=== PATIENT | male | born 1955 | race Caucasian/White ===

== ENCOUNTER → 2017-03-29 | Outpatient (CLI) | payer MEDICARE, BC ==
--- NOTE | 2017-03-29 08:20 | MR ---
EXAMINATION TYPE: MR brain wo con, MR angio head wo con DATE OF EXAM: 03/29/2017 COMPARISON: NONE HISTORY: Family history of stroke TECHNIQUE: Multiplanar, multisequence images of the brain and brainstem is performed without IV contrast. Time of flight images focusing on the [place] of [place] were performed without contrast.. 2-D and 3-D post processing imaging is performed. FINDINGS: Diffusion weighted images demonstrate no evidence of a recent infarct or other diffusion ab normality. There is no extra-axial fluid collection. Numerous T2/FLAIR hyperintense foci are scatter ed throughout the subcortical and periventricular white matter measuring up to 5 mm within both the r ight and left frontal lobes on T2 FLAIR and axial fat sat sequence image 18 and 19 on the right and l eft respectively. These do not have a typical pericallosal distribution of demyelinating disease. No infratentorial white matter changes are seen. No suspicious surrounding vasogenic edema is noted. The ventricular system and cisternal spaces are normal in size and appearance. The brain volume is age appropriate. Midline structures demonstrate normal morphology. The craniocervical junction appears within normal limits. The globes are intact. Mild mucosal thickening is seen within the ethmoid sinuses and right m axillary sinus. Remaining paranasal sinuses and mastoid air cells are well aerated. Midline structure s and bone marrow signal are unremarkable. Extraocular muscles are symmetric. There is no evidence of vascular dissection in the visualized intracranial vascular structures. There is no evidence of hemodynamically significant stenosis. There is a saccular aneurysm at the junction of the posterior communicating artery and right M1 segment measuring 3.3 mm. No other intracranial a neurysms are identified. No vascular malformations. The [place] of [place] is intact. The vertebral art eries are codominant. IMPRESSION: 1. 3.3 mm intracranial aneurysm at the junction of the M1 segment of the middle cerebral artery and p osterior communicating artery. 2. No evidence of hemodynamically significant stenosis or vascular dissection. 3. Moderate burden nonspecific white matter change, slightly pronounced for the patient's age, this i s not in the typical distribution of demyelinating disease and primary diagnostic consideration is fo r sequela of microangiopathy. Correlate with history of vascular disease or hypertension. 4. Mild paranasal sinus disease. 5. No evidence of acute infarct.
== END | disposition home or self-care (01) ==
LOC: RADMRIMAIN 06:58
PROVIDERS: ATTEND Family Medicine
DX: I67.1 Cerebral aneurysm, nonruptured (principal); R90.82 White matter disease, unspecified; I10 Essential (primary) hypertension; Z82.3 Family history of stroke
CPT/HCPCS: 70544; 70551

== ENCOUNTER → 2020-07-05 | Outpatient (CLI) | payer MEDICARE ==
--- NOTE | 2020-07-05 22:14 | MR ---
EXAMINATION TYPE: MR knee RT wo con DATE OF EXAM: 07/05/2020 COMPARISON: Not available. HISTORY: Right knee pain x 1 month TECHNIQUE: Multiplanar, multisequence imaging of the right knee is performed without IV contrast. FINDINGS: MEDIAL MENISCUS: Horizontal oblique tear of the posterior horn and body junction. LATERAL MENISCUS: Anterior and posterior horns are intact without tear. CRUCIATE LIGAMENTS: Mild heterogeneity and irregularity of the anterior cruciate ligament without ful l-thickness tear. Posterior cruciate ligament is intact and unremarkable. COLLATERAL LIGAMENTS: Mild thickening of the medial collateral ligament with surrounding edema compat ible with prior sprain. Lateral collateral ligament complex are intact and unremarkable. EXTENSOR MECHANISM: Visualized quadriceps and patellar tendons are intact. EFFUSION: [id number]-[id number] knee joint effusion. POPLITEAL CYST: Small popliteal/orta cyst. TRICOMPARTMENT SPACES/CARTILAGE: Mild thinning of the medial and patellofemoral compartment articular cartilage without significant chondral defects. Lateral compartment is grossly intact BONE MARROW SIGNAL: No focal abnormal marrow signal is appreciated. OTHER: Moderate circumferential soft tissue edema about the knee IMPRESSION: Medial meniscus posterior horn and body junction tear. Mild osteoarthritis. Mild heterogeneity and irregularity of the anterior cruciate ligament, compatible with prior sprain w ithout full-thickness tear. Prior grade 1 MCL sprain. Soft tissue edema about the knee with joint effusion.
== END | disposition home or self-care (01) ==
LOC: RADMRIMAIN 16:29
PROVIDERS: ATTEND Orthopaedic Surgery Sports Medicine
DX: S83.241A Other tear of medial meniscus, current injury, right knee, initial encounter (principal); M17.11 Unilateral primary osteoarthritis, right knee

== ENCOUNTER → 2020-11-01 | Outpatient (CLI) | payer MEDICARE ==
--- NOTE | 2020-11-01 16:36 | CT ---
EXAMINATION TYPE: CT abdomen pelvis wo con DATE OF EXAM: 11/01/2020 COMPARISON: 12/13/2011 INDICATION: right flank pain DLP: 1186.2 mGycm, Automated exposure control for dose reduction was used. CONTRAST: No IV contrast Study performed without Oral Contrast TECHNIQUE: Axial images were obtained from above the diaphragm to the pubic rami in the axial plane a t 5 mm thick sections. Reconstructed images are reviewed on the computer in the coronal plane. FINDINGS: Limited CT sections are obtained the lung bases. Some minimal atelectasis may be along the posterior medial right lung base. Some coronary artery calcification is present.. CT ABDOMEN: Liver: Normal Spleen: Normal Pancreas: Normal Adrenal glands: The adrenal glands are normal. Gallbladder: Normal Kidneys: No masses are evident. No hydronephrosis is present. No cysts are present. No renal stone s are identified. Aorta: Vascular calcification is within the aorta. Inferior vena cava: Normal. CT PELVIS: Loops of bowel within the abdomen and pelvis are normal. There are loops of bowel which are incom pletely distended or lack oral contrast limiting their evaluation. Appendix: Not visualized. No dilated tubular structure or inflammatory changes evident. Urinary bladder: Normal. Genitourinary structures: Prostate calcification is present. Osseous structures: No suspicious lytic or sclerotic lesions. IMPRESSIONS: 1. No suspicious abnormality to suggest renal or ureteral stones.
== END | disposition home or self-care (01) ==
LOC: RADCTMAIN 09:46
PROVIDERS: ATTEND Family Medicine
DX: R10.9 Unspecified abdominal pain (principal)
CPT/HCPCS: 74176

== ENCOUNTER 2023-01-09 19:15 | Emergency (ER) | payer MEDICARE ==
[2023-01-09 19:49] VITALS: TEMP 98
[2023-01-09] MEDS ORDERED: DIPH,PERTUS(ACELL)TETVAC-LF 0.5 ML VIAL IM ONE (20:16)
--- NOTE | 2023-01-09 20:26 | ED ---
General Adult HPI - General Chief complaint: Extremity Injury, Upper Stated complaint: left thurmb lac Time Seen by Provider: 01/09/23 20:00 Source: patient, EMS, RN notes reviewed Mode of arrival: EMS - History of Present Illness Initial comments: 67 year old male presents to the emergency department for chief complaint of left thumb injury. He states that he cut his finger with his crossbow string. He reports normal sensation. He states it is painful with movement. Unsure of his last tetanus vaccination. PMH include HTN, HLD. - Related Data Previous Rx's Medication Instructions Recorded Cephalexin [Keflex] 500 mg PO Q6HR 7 Days #28 cap 01/09/23 Allergies Allergy/AdvReac Type Severity Reaction Status Date / Time No Known Allergies Allergy Verified 01/09/23 19:37 Review of Systems ROS Statement: Those systems with pertinent positive or pertinent negative responses have been documented in the HPI. ROS Other: All systems not noted in ROS Statement are negative. Past Medical History Past Medical History: Coronary Artery Disease (CAD), Hypertension History of Any Multi-Drug Resistant Organisms: None Reported Past Surgical History: Heart Catheterization With Stent Additional Past Surgical History / Comment(s): Knee, shoulder, and forearm surgery Smoking Status: Never smoker Past Alcohol Use History: Occasional Past Drug Use History: None Reported General Exam Limitations: no limitations General appearance: alert, in no apparent distress Head exam: Present: atraumatic, normocephalic, normal inspection Eye exam: Present: normal appearance ENT exam: Present: normal exam, mucous membranes moist Respiratory exam: Present: normal lung sounds bilaterally. Absent: respiratory distress, wheezes, rales, rhonchi, stridor Cardiovascular Exam: Present: regular rate, normal rhythm, normal heart sounds. Absent: systolic murmur, diastolic murmur, rubs, gallop, clicks Extremities exam: Present: tenderness, normal capillary refill, other (laceration to lateral aspect of left thumb). Absent: full ROM (decreased ROM due to pain) Neurological exam: Present: alert, oriented X3 Psychiatric exam: Present: normal affect, normal mood Skin exam: Present: warm, dry, normal color, other. Absent: intact, rash Course Vital Signs 01/09/23 01/09/23 19:29 22:21 Temperature 98.0 F Pulse Rate 86 74 Respiratory 17 16 Rate Blood Pressure 176/74 129/64 O2 Sat by Pulse 98 96 Oximetry Procedures - Laceration Laceration #1 Consent Obtained: verbal consent Indication: laceration Site: hand Size (cm): 3 Description: flap Depth: simple, single layer Anesthetic Used: lidocaine 1% Anesthesia Technique: nerve block Pre-repair: wound explored, irrigated extensively (500cc) Type of Sutures: other Size of Sutures: 5-0 Number of Sutures: 10 Technique: simple, interrupted Patient Tolerated Procedure: well, no complications Medical Decision Making - Medical Decision Making Was pt. sent in by a medical professional or institution (, PA, FOOD PRODUCTS TESTER, urgent care, hospital, or skilled nursing...) When possible be specific @ -No Did you speak to anyone other than the patient for history (EMS, parent, family, police, friend...)? What history was obtained from this source @ -No Did you review nursing and triage notes (agree or disagree)? Why? @ -I reviewed and agree with nursing and triage notes Were old charts reviewed (outside hosp., previous admission, EMS record, old EKG, old radiological studies, urgent care reports/EKG's, skilled nursing records)? Report findings @ -No old charts were reviewed Differential Diagnosis (chest pain, altered mental status, abdominal pain women, abdominal pain men, vaginal bleeding, weakness, fever, dyspnea, syncope, headache, dizziness, GI bleed, back pain, seizure, CVA, palpatations, mental health, musculoskeletal)? @ -Differential Musculoskeletal Muscular strain, contusion, ligament sprain, fracture, arthritis, septic arthritis, bursitis, cellulitis, muscle spasm, nerve compression, DVT, arterial occlusion, herpes zoster, electrolyte abnormality, tumor.... This is not meant to be in all inclusive list EKG interpreted by me (3pts min.). @ -none X-rays interpreted by me (1pt min.). @ -XR left thumb shows soft tissue injury, anterior base distal phalanx left thumb avulsion, likely old CT interpreted by me (1pt min.). @ -None done U/S interpreted by me (1pt. min.). @ -None done What testing was considered but not performed or refused? (CT, X-rays, U/S, labs)? Why? @ -None What meds were considered but not given or refused? Why? @ -None Did you discuss the management of the patient with other professionals (professionals i.e. , PA, FOOD PRODUCTS TESTER, lab, RT, psych nurse, social worker clinical, floral designer, teacher, energy control officer, bilingual case manager)? Give summary @ -No Was smoking cessation discussed for >3mins.? @ -No Was critical care preformed (if so, how long)? @ -No Were there social determinants of health that impacted care today? How? (Homeles sness, low income, unemployed, alcoholism, drug addiction, transportation, low edu. Level, literacy, decrease access to med. care, penitentiary, rehab)? @ -No Was there de-escalation of care discussed even if they declined (Discuss DNR or withdrawal of care, Hospice)? DNR status @ -No What co-morbidities impacted this encounter? (DM, HTN, Smoking, COPD, CAD, Cancer, CVA, ARF, Chemo, Hep., AIDS, mental health diagnosis, sleep apnea, morbid obesity)? @ -None Was patient admitted / discharged? Hospital course, mention meds given and route, prescriptions, significant lab abnormalities, going to OR and other pertinent info. @ -Discharged. Patient presented to emergency complaining of left thumb injury which cut his left lateral thumb. Wound was extensively irrigated with 500 mL normal saline, wound repaired. X-ray obtained which shows soft tissue injury, anterior base distal phalanx of the left thumb avulsion which is likely old. Patient will be started on prophylactic antibiotics. Tetanus vaccination updated. Patient stable at time of discharge. Case discussed with Dr. Soto Undiagnosed new problem with uncertain prognosis? @ -No Drug Therapy requiring intensive monitoring for toxicity (Heparin, Nitro, Insulin, Cardizem)? @ -No Were any procedures done? @ -Laceration repair Diagnosis/symptom? @ -Laceration Acute, or Chronic, or Acute on Chronic? @ -[Acute Uncomplicated (without systemic symptoms) or Complicated (systemic symptoms)? @ -Uncomplicated Side effects of treatment? @ -No Exacerbation, Progression, or Severe Exacerbation? @ -No Poses a threat to life or bodily function? How? (Chest pain, [place], [place], pneumonia, PE, COPD, DKA, ARF, appy, cholecystitis, CVA, Diverticulitis, Homicidal, Suicidal, threat to staff... and all critical care pts) @ -No Disposition Clinical Impression: Laceration Disposition: HOME SELF-CARE Condition: Stable Instructions (If sedation given, give patient instructions): Care For Your Stitches (ED) Additional Instructions: Please have sutures removed in 7-10 days. Utilize Tylenol as needed for pain. Return to the emergency department for new or worsening symptoms. Prescriptions: Cephalexin [Keflex] 500 mg PO Q6HR 7 Days #28 cap Is patient prescribed a controlled substance at d/c from ED?: No Referrals: Nancy Rosario NPC [Primary Care Provider] - 1-2 days Rock Prieto DO [Doctor of Osteopathic Medicine] - 1-2 days
--- NOTE | 2023-01-09 21:39 | XR ---
EXAMINATION TYPE: XR finger LT DATE OF EXAM: 01/09/2023 COMPARISON: None HISTORY: Injury laceration posterior left thumb TECHNIQUE: 3 view left thumb FINDINGS: Some soft tissue changes are in the dorsal left thumb. There appears to be an avulsion from the anterior inferior distal phalanx left thumb. Correlate with the injury, this can be old with melanie ewhat smooth margins. No additional area suspicious for fractures evident. No radiopaque foreign bodies evident. IMPRESSION: 1. Soft tissue swelling dorsum of the thumb can be related to the patient's reported injury. 2. Anterior base distal phalanx left thumb avulsion, likely old. Correlate with the history.
[2023-01-09] MEDS ORDERED: CEPHALEXIN 500 MG CAP PO STA (22:00)
[2023-01-09 22:35] VITALS: BP 129/64; PULSE 74; RESP 16
== END 2023-01-09 22:22 | disposition home or self-care (01) ==
LOC: EC 19:15
DX: S61.012A Laceration without foreign body of left thumb without damage to nail, initial encounter (principal); I25.10 Atherosclerotic heart disease of native coronary artery without angina pectoris; I10 Essential (primary) hypertension; Z23 Encounter for immunization; W26.8XXA Contact with other sharp object(s), not elsewhere classified, initial encounter
CPT/HCPCS: 12002; 90471; 90715; 99283